=== PATIENT | female | born 1970 | race Caucasian/White ===

== ENCOUNTER 2021-05-14 07:10 | Inpatient (IN) ==
[2021-05-14] MEDS ORDERED: methylPREDNISolone 125 MG/2 ML VIAL IV STA (07:21)
[2021-05-14] MEDS ORDERED: ALBUT/IPRATROP 3MG/0.5MG NEB 3 ML VIAL NEB STA (07:21)
--- NOTE | 2021-05-14 08:19 | XRay Report ---
XR chest 1V portable CLINICAL HISTORY: dyspnea TECHNIQUE: Single frontal radiograph of the chest was obtained. Comparison: Comparison is made to chest one view 06/01/2012 FINDINGS: No lines and tubes are seen. The cardiomediastinal silhouette is normal. The lungs are clear. No evid ence of pleural effusion or pneumothorax. IMPRESSION: No acute chest disease. ACT 112: Negative or not required by law. Electronically signed by: Brendan Genao M.D. 05/14/2021 8:17 AM
[2021-05-14 09:00] LABS: Basophils # (auto) 0.02 K/uL (0-0.2); Basophils % (auto) 0.2 %; Hemoglobin 16.6 g/dL (12.0-16.0); Immature Granulocytes # (auto) 0.02 K/uL (0.00-0.02); Immature Granulocytes % (auto) 0.2 %; Lymphocytes % (auto) 12.2 %; Mean Corpuscular Hemoglobin 30.7 pg (25-34); Mean Corpuscular Hgb Conc 30.2 g/dL (32-36); Mean Corpuscular Volume 101.9 fL (80-100); Mean Platelet Volume 10.5 fL (7.4-10.4); Monocytes # (auto) 0.54 K/uL (0.11-0.59); Monocytes % (auto) 5.5 %; Neutrophils # (auto) 7.93 K/uL (1.4-6.5); Neutrophils % (auto) 80.9 %; Platelet Count 306 K/uL (130-400); RDW Coefficient of Variation 15.3 % (11.5-14.5); RDW Standard Deviation 56.2 fL (36.4-46.3); White Blood Count 9.81 K/uL (4.8-10.8)
[2021-05-14 09:29] LABS: Alanine Aminotransferase 14 U/L (12-78); Albumin Level 3.1 gm/dl (3.4-5.0); Aspartate Aminotransferase 10 U/L (15-37); BUN Creatinine Ratio 14.3 (10-20); Blood Urea Nitrogen 11 mg/dl (7-18); Calcium 8.9 mg/dl (8.5-10.1); Carbon Dioxide 32 mmol/L (21-32); Chloride 98 mmol/L (98-107); Est GFR (Non-African American) 93.1 ml/min; Glucose 112 mg/dl (70-99); Sodium 139 mmol/L (136-145)
[2021-05-14 09:32] LABS: Albumin Globulin Ratio 0.7 (0.9-2); Alkaline Phosphatase 91 U/L (45-117); Bilirubin,Total 0.5 mg/dl (0.2-1); Globulin 4.2 gm/dl (2.5-4.0); Total Protein 7.3 gm/dl (6.4-8.2); Troponin I < 0.015 ng/ml (0-0.045)
[2021-05-14] MEDS ORDERED: SODIUM CHLORIDE 0.9% 500 ML IV ONE (09:42)
[2021-05-14] MEDS ORDERED: SODIUM CHLORIDE 0.9% 1000ML 1,000 ML IV SCH (09:45)
[2021-05-14] MEDS: MAGNESIUM SULFATE / D5W 1 GM/100 ML BAG IV SCH ×2 (10:06→10:22)
--- NOTE | 2021-05-14 10:15 | History & Physical Report ---
Date of Service May 14, 2021 Assessment & Plan (1) Hypoxia: (2) SOB (shortness of breath): Plan: Likely COPD or asthma exacerbation in patient with tobacco use and undiagnosed lung disease Patient is 51-year-old female with PMH depression, anxiety, bipolar disorder, pseudoseizures, tobacco use presented to ER with complaint of SOB, wheezing x several weeks. No fever/chills, or CP. Using OTC Primatine Mist Inhaler and now able to have nonproductive cough. In ER patient afebrile, initial P 100, BP 130/91, 65% on room air placed on nonrebreather at 15 L with sats of 100% then transition to oxygen mask 6 L with sats remaining at 100% and was given an hour-long neb treatment. Posttreatment is 91% on 4 L oxygen mask. No leukocytosis, negative troponin, negative COVID-19 PCR. Chest x-ray: No infiltrate, no pneumothorax In ER received hour-long albuterol nebulizer treatment, Solu-Medrol 125 mg, 2 g magnesium sulfate, 500 mL NSS bolus After nebulizer treatment patient has been able to being titrated down to 4 L oxygen mask with sats 91-93% and patient much more comfortable Admit PCU ABG pending Supplemental oxygen with goal 90% O2 sat as suspect underlying COPD Scheduled DuoNebs Solu-Medrol 40 mg every 8 H Zithromax IVF May need to consider pulmonology consult if no improvement CBC, BMP in a.m. (3) Anxiety and depression: Plan: History anxiety, depression, bipolar disorder No current medications. Has not had follow-up for years (4) History of pseudoseizure: Plan: Previously on medications. Has not had follow-up for years Monitor (5) Tobacco use: Plan: History 1 pack/day smoker x40 years. Past month has reportedly stopped smoking Encourage patient to continue to avoid tobacco DVT Prophylaxis -Lovenox SQ Full Code as per discussion with pt Does not have PCP for routine care Pt was seen and care coordinated with Dr Iverson. See addendum History of Present Illness Chief Complaint: SOB Primary Care Provider: NO PCP Patient is 51-year-old female with PMH depression, anxiety, bipolar disorder, pseudoseizures, tobacco use presented to ER with complaint of shortness of breath times several weeks. Patient reports been having shortness of breath and wheezing for several weeks however this morning woke up with severe shortness of breath. Tried using OTC Primatine Mist Inhaler. States she feels like was able to cough after using that a couple of times. Feels like she is not moving much air. In past was to be on daily inhaler and nasal spray, however did not take regularly. Has not seen PCP for 7 years. Reports a smoker 0.5-1 ppd x 40 years. In the past month has cut down and not smoking past month. Denies fever/chills, diaphoresis, N/V/D/C, REAL, dizziness, syncope, vision changes, neck pain, CP, orthopnea, palpitations, sore throat, choking, otalgia, rhinorrhea, abdominal pain, paresthesias, extremity weakness, extremity edema, rashes, urinary symptom s. Denies ill contacts. Reports stays at home mostly. Did not have COVID-19 vaccine. Cell phone number: [phone], home phone in chart also. In ER patient afebrile, initial P 100, BP 130/91, 65% on room air placed on nonrebreather at 15 L with sats of 100% then transition to oxygen mask 6 L with sats remaining at 100% and was given an hour-long neb treatment. Posttreatment is 91% on 4 L oxygen mask. No leukocytosis, negative troponin, negative COVID- 19 PCR. Chest x-ray without infiltrate, pneumothorax. Allergies Allergy/AdvReac Type Severity Reaction Status Date / Time Penicillins Allergy Severe RASH, Verified 07/29/09 03:36 HIVES, AND CHEST TIGHTNESS Home Medications Medication Instructions Recorded Confirmed Type No Known Home Medications 05/14/21 05/14/21 History Past Med/Surg History Medical History Anxiety and depression History of pseudoseizure Tobacco use Surgical History (Updated 05/14/21 @ 10:16 by Sanaz Pollard PA-C) History of History of hysterectomy Hx of tubal ligation Family History (Updated 05/14/21 @ 10:16 by Sanaz Pollard PA-C) Mother Breast cancer Social History (Updated 05/14/21 @ 10:29 by Sanaz Pollard PA-C) Smoking Status: Current every day smoker Tobacco Type: Cigarettes Hx Alcohol Use: No Hx Substance Use: No Current Living Situation: Spouse Feels Safe at Home: Yes Review of Systems Review of Systems: All systems reviewed & are unremarkable except as noted in HPI & below Physical Exam Physical Exam: General: mild distress currently with coughing with deep breathing, improves with rest. 93% on 4L oxymask, Thin female, appears older than stated age. dishevelved. Head: normocephalic, atraumatic Eyes: EOM's grossly intact, conjunctiva non-injected, anicteric ENT: normal inspection external ears, nose, mucous membranes dry Neck: supple, trachea midline Lungs: +Very diminished breath sounds throughout, +cough episode with deep breathing. Currently 93% on 4L oxymask. no wheezing/rhonchi/rales appreciated CV: tachycardia at 132, regular rhythm, no murmur, no pretibial edema Abd: normal BS, soft, non-tender Ext: no cyanosis, no calf tenderness Neuro: A&O x 3, no focal deficits noted, normal affect Skin: warm, dry Results & Data Results & Data ([facility]) Vital Signs (Past 12 Hours) Vital Signs Temp Pulse Pulse Resp BP BP Pulse Ox 05/14/21 09:00 141 H 21 127/80 98 05/14/21 08:30 124 H 20 129/82 99 05/14/21 08:12 124 H 26 H 139/84 100 05/14/21 07:49 116 H 28 H 100 05/14/21 07:37 118 H 20 100 05/14/21 07:14 37.1 C 100 H 18 130/91 65 L 05/14/21 07:11 65 L Supervising Physician Co-Signing Physician Notes Pt is a 51 y/o F with hx of Migraine, Depression, Pseudoseizure (hands tremor), asthma/COPD admitted for SOB with Hypoxia. Pt also complained of vaginal discharge for 2 weeks Exam: In mild Respiratory distress, on 4L oxymask Cardiac: normal S1/S2, no murmur Lungs: b/l decreased BS (significant), no wheezing Abd: ND, NT, Soft MSK: no LE edema Psych: AAOx3 A/P: SOB with Hypoxia: -2/2 COPD exacerbation (due to lack of medical treatment) -COVID neg and CXR showed no sign of pneumonia -pt responded well to steroid and nebs -for now will continue the pt on supplemental oxygen ----ABG pending: if CO2 significantly abnormal then will consider BiPAP -will do solumedrol and nebs q4hrs and zpak -case management consult: to help pt with insurance - PCU admission for now Vaginal discharge: -2/2 likely Samantha Vaginitis -has been sexually active for 1 year and only one partner -will do diflucan if no improvement then flagyl for possible BV Agree with A/P by Sanaz Pollard PA-C
[2021-05-14 11:21] LABS: Base Excess ABG 4.9 mEq/L (-9-1.8); HCO3 ABG 36 mmol/L (19-24); Oxygen Saturation ABG 95.3 % (90-95); PCO2 ABG 84 mmHg (35-46); PO2 ABG 86 mmHg (80-95); pH ABG 7.25 (7.35-7.45)
[2021-05-14 11:33] LABS: Allen Test Pos (Pos)
--- NOTE | 2021-05-14 11:58 | Communication Note ---
Date of Service: May 14, 2021 Pt's ABG showed PH of 7.25, CO2 of 84 --- will put pt on BiPAP and repeat ABG in 1 hour --- if repeat ABG showed CO2<60 then will transition the pt to oxymask
[2021-05-14] MEDS ORDERED: ACETAMINOPHEN 325 MG TAB PO PRN (14:04)
[2021-05-14] MEDS ORDERED: ONDANSETRON INJ 2 MG/ML 2 ML VIAL IV PRN (14:04)
[2021-05-14] MEDS ORDERED: POLYETHYLENE (MIRALAX) 17 GM PACK PO PRN (14:04)
[2021-05-14] MEDS ORDERED: AZITHROMYCIN 250 MG TAB PO ONE (14:14)
[2021-05-14] MEDS ORDERED: FLUCONAZOLE 50 MG TAB PO ONE (14:15)
--- NOTE | 2021-05-14 14:19 | Emergency Department Note ---
Impression & Plan Asthma with status asthmaticus, Hypoxia, SOB (shortness of breath) ED Provider Note CHIEF COMPLAINT: SOB HISTORY OF PRESENT ILLNESS: This 51-year-old female patient presents to the emergency department who presents emergency department with complaints of shortness of breath and asthma exacerbation. Patient states she has a long history of asthma and smoking, stopped smoking within the last month. She has had 2 cigarettes this month she says. Patient has had some increased work of breathing and is unable to lie flat. She has been using an [id number] inhaler but states it made her cough. She denies any fevers, chills, chest pain, vomiting or diarrhea. Patient is not Covid vaccinated. She states she lives at home with her and does not really leave. She also states she has not seen a physician in many years. REVIEW OF SYSTEMS: A review of systems was performed with positives and pertinent negatives listed in the history of present illness. 10 systems were reviewed and are otherwise negative. ALLERGIES: see below MEDICATIONS: see below PMH: see below SOCIAL HISTORY: see below DDx: Reactive airway disease, pneumonia, pneumothorax, COPD, CHF, infections, cardiac ischemia, pulmonary embolism, musculoskeletal, gastrointestinal, as well as other pathologies. PHYSICAL EXAM: Vital signs reviewed. Hypoxic to 65% on room air at triage General: Chronically ill-appearing 51-year-old female, in some respiratory distress, on nonrebreather HEENT: No scleral icterus, PERRLA, neck supple. Atraumatic. Cardiovascular: Tachycardic but regular with occasional ectopy. Pulmonary: Diminished breath sounds bilaterally to auscultation, increased work of breathing. Tripoding, minimal air movement. Abdomen: Soft, nontender, nondistended, positive bowel sounds. Musculoskeletal: Atraumatic, no peripheral edema. Neurologic: Patient awake alert and oriented x 3, speech is clear Skin: Warm, dry, no rash EMERGENCY DEPARTMENT COURSE/MDM: This patient was evaluated and appeared to be in no significant distress. IV access was obtained and laboratory work was draw n. Patient was placed on a quality assurance monitor noted to be in a sinus tachycardia. Patient's chest x-ray reveals no evidence of focal lung consolidation or failure. Covid swab was obtained and is negative. Was difficult to obtain IV access on the patient therefore she was given 125 mg of IM Solu-Medrol and an hour-long DuoNeb treatment. After IV access was established, the patient was given 2 g of IV magnesium for persistent tightness, asthma. She did have some improvement. IV fluids were administered. Patient's case was discussed with the hospitalist service who will evaluate the patient for admission and further management. MONITORING: An order for cardiac monitoring was placed and the patient is noted to be in a sinus tachycardia at 118 beats per minute. RADIOLOGY: See below EKG: Sinus tachycardia 117 bpm. Right atrial enlargement, rightward axis. Pulmonary disease pattern with previous septal infarct. Nonspecific ST changes. QTc is 446. No PVC, no PAC. Normal QT interval. DISPOSITION: Admission I have personally spent 35 minutes of critical care time in the direct management of this patient. This was a life/limb threatening event. This 35 minutes is in excess of all separately billable procedures. Past Med/Surg History Medical History Anxiety and depression History of pseudoseizure Tobacco use Surgical History History of History of hysterectomy Hx of tubal ligation Family History Mother Breast cancer Social History Smoking Status: Former smoker Tobacco Type: Cigarettes Cigarettes Per Day: 2; Hx Alcohol Use: No Hx Substance Use: No Preferred Language: Kenyan Communication Ability: Effective Officer Lieutenant Required: No Beliefs That Will Affect Care: None Current Living Situation: Spouse Other Information That Helps Us Care for You: No Feels Safe at Home: Yes Safety Concerns: Feels Safe At This Time Assistive Devices: Cane and Glasses Allergies Allergies Allergy/AdvReac Type Severity Reaction Status Date / Time Penicillins Allergy Severe RASH, Verified 07/29/09 03:36 HIVES, AND CHEST TIGHTNESS Home Meds Home Medications Medication Instructions Recorded Confirmed No Known Home Medications 05/14/21 05/14/21 Results & Data (ED) Vital Signs Vital Signs - 24 hr 05/14/21 07:11 05/14/21 07:14 05/14/21 07:25 Temperature 37.1 C Temperature Source Temporal Artery Scan Pulse Rate 100 H Pulse Rate [Right Finger] Pulse Rate from SpO2 Sensor Pulse Rhythm Pulse Rhythm [Right Finger] Pulse Strength [Right Finger] Respiratory Rate 18 Respiratory Effort / Characteristics Non-Labored Labored Respiratory Depth Normal Shallow Respiratory Pattern Tachypnea Blood Pressure 130/91 Blood Pressure [Right Arm] Blood Pressure Mean 104 Blood Pressure Mean [Right Arm] Blood Pressure Position [Right Arm] Pulse Oximetry 65 L 65 L Oxygen Delivery Method Non-rebreather Room Air Oxygen Flow Rate 0 Sepsis Recent Fever Within 48 Hours No Sepsis New/Unexplained Change in Mental Status No Sepsis Action Taken by Nursing No Action Required Oxygen Flow Rate - Titration 15 Pulse Oximetry Post Tiitration 100 05/14/21 07:35 05/14/21 07:37 05/14/21 07:46 Temperature Temperature Source Pulse Rate Pulse Rate [Right Finger] 118 H Pulse Rate from SpO2 Sensor Pulse Rhythm Pulse Rhythm [Right Finger] Pulse Strength [Right Finger] Respiratory Rate 20 Respiratory Effort / Characteristics Non-Labored Spontaneous Respiratory Depth Respiratory Pattern Blood Pressure Blood Pressure [Right Arm] Blood Pressure Mean Blood Pressure Mean [Right Arm] Blood Pressure Position [Right Arm] Pulse Oximetry 100 Oxygen Delivery Method Oxymask Oxymask Oxymask Oxygen Flow Rate 4 Sepsis Recent Fever Within 48 Hours Sepsis New/Unexplained Change in Mental Status Sepsis Action Taken by Nursing Oxygen Flow Rate - Titration 6 4 Pulse Oximetry Post Tiitration 100 100 05/14/21 07:49 05/14/21 08:12 05/14/21 08:30 Temperature Temperature Source Pulse Rate 116 H 124 H Pulse Rate [Right Finger] 124 H Pulse Rate from SpO2 Sensor 124 H Pulse Rhythm Regular Pulse Rhythm [Right Finger] Regular Pulse Strength [Right Finger] Normal Respiratory Rate 28 H 26 H 20 Respiratory Effort / Characteristics Non-Labored Spontaneous Respiratory Depth Normal Respiratory Pattern Regular Blood Pressure 129/82 Blood Pressure [Right Arm] 139/84 Blood Pressure Mean 97 Blood Pressure Mean [Right Arm] 102 Blood Pressure Position [Right Arm] Sitting Pulse Oximetry 100 100 99 Oxygen Delivery Method Nebulizer Nebulizer Oxygen Flow Rate Sepsis Recent Fever Within 48 Hours Sepsis New/Unexplained Change in Mental Status Sepsis Action Taken by Nursing Oxygen Flow Rate - Titration Pulse Oximetry Post Tiitration 05/14/21 09:00 05/14/21 09:30 05/14/21 10:00 Temperature Temperature Source Pulse Rate 141 H 135 H 135 H Pulse Rate [Right Finger] Pulse Rate from SpO2 Sensor 141 H 137 H 136 H Pulse Rhythm Pulse Rhythm [Right Finger] Pulse Strength [Right Finger] Respiratory Rate 21 17 17 Respiratory Effort / Characteristics Respiratory Depth Respiratory Pattern Blood Pressure 127/80 115/72 109/72 Blood Pressure [Right Arm] Blood Pressure Mean 95 86 84 Blood Pressure Mean [Right Arm] Blood Pressure Position [Right Arm] Pulse Oximetry 98 91 92 Oxygen Delivery Method Oxygen Flow Rate Sepsis Recent Fever Within 48 Hours Sepsis New/Unexplained Change in Mental Status Sepsis Action Taken by Nursing Oxygen Flow Rate - Titration Pulse Oximetry Post Tiitration Home Medications Current Medication List: was personally reviewed by me Laboratory Data Attestation: I reviewed the patient's lab results. Result diagrams: 05/14/21 08:51 05/14/21 08:51 Lab Results 05/14/21 05/14/21 05/14/21 Range/Units 08:00 08:00 08:00 WBC Cancelled RBC Cancelled Hgb Cancelled Hct Cancelled MCV Cancelled MCH Cancelled MCHC Cancelled RDW Std Deviation Cancelled RDW Coeff of Len Cancelled Plt Count Cancelled MPV Cancelled Immature Gran % (Auto) Cancelled Neut % (Auto) Cancelled Lymph % (Auto) Cancelled [place] % (Auto) Cancelled Eos % (Auto) Cancelled Baso % (Auto) Cancelled Neut # (Auto) Cancelled Lymph # (Auto) Cancelled [place] # (Auto) Cancelled Eos # (Auto) Cancelled Baso # (Auto) Cancelled Immature Gran # (Auto) Cancelled Absolute Nucleated RBC Cancelled Nucleated RBC % (auto) Cancelled Neutrophils % (Manual) Cancelled Band Neutrophils % Cancelled Lymphocytes % (Manual) Cancelled Prolymphocyte % Cancelled Reactive Lymphs % (Man) Cancelled Monocytes % (Manual) Cancelled Eosinophils % (Manual) Cancelled Basophils % (Manual) Cancelled Metamyelocytes % (Man) Cancelled Myelocytes % (Man) Cancelled Promyelocytes % (Man) Cancelled Blast Cells % (Manual) Cancelled Plasma Cell % (Manual) Cancelled Other Cells % Cancelled Nucleated RBC % Cancelled Neutrophils # (Manual) Cancelled Band Neutrophils # Cancelled Total Absolute Neuts Cancelled Lymphocytes # (Manual) Cancelled Prolymphocyte # Cancelled Reactive Lymphs # Cancelled Total Abs Lymphocytes Cancelled Monocytes # (Manual) Cancelled Eosinophils # (Manual) Cancelled Basophils # (Manual) Cancelled Metamyelocytes # (Man) Cancelled Myelocytes # (Manual) Cancelled Promyelocytes # (Man) Cancelled Blast Cells # (Man) Cancelled Plasma Cell # (Manual) Cancelled Other Cells # Cancelled Nucleated RBCs # (Man) Cancelled Hypersegmented Neuts Cancelled Hyposegmented Neuts Cancelled Hypogranular Neuts Cancelled Large Granular Lymphs Cancelled # Lrg Granular Lymphs Cancelled Hairy Cells Cancelled Smudge Cells Cancelled Toxic Granulation Cancelled Toxic Vacuolation Cancelled Dohle Bodies Cancelled Leo Rods Cancelled Platelet Estimate Cancelled Hypogranular Platelets Cancelled Clumped Platelets Cancelled Giant Platelets Cancelled Platelet Satelliting Cancelled RBC Morphology Cancelled Polychromasia Cancelled Hypochromasia Cancelled Poikilocytosis Cancelled Basophilic Stippling Cancelled Anisocytosis Cancelled Microcytosis Cancelled Macrocytosis Cancelled Spherocytes Cancelled Pappenheimer Bodies Cancelled Sickle Cells Cancelled Target Cells Cancelled Tear Drop Cells Cancelled Ovalocytes Cancelled Stomatocytes Cancelled Zuluaga-Cromberg Bodies Cancelled Echinocytes Cancelled Acanthocytes (Spur) Cancelled Rouleaux Cancelled RBC Agglutinates Cancelled Schistocytes Cancelled RBC Morph Comment Cancelled Sezary Cell Cancelled Sodium Cancelled Potassium Cancelled Chloride Cancelled Carbon Dioxide Cancelled Anion Gap Cancelled BUN Cancelled Creatinine Cancelled Est Cr Clr Drug Dosing Cancelled Est GFR ( Amer) Cancelled Est GFR (Non-Af Amer) Cancelled BUN/Creatinine Ratio Cancelled Glucose Cancelled Calcium Cancelled Magnesium (1.8-2.4) mg/dl Total Bilirubin Cancelled AST Cancelled ALT Cancelled Alkaline Phosphatase Cancelled Troponin I Cancelled Total Protein Cancelled Albumin Cancelled Globulin Cancelled Albumin/Globulin Ratio Cancelled SARS-CoV-2 (PCR) NEGATIVE (Negative) 05/14/21 05/14/21 05/14/21 Range/Units 08:51 08:51 08:51 WBC 9.81 RBC 5.40 Hgb 16.6 H Hct 55.0 H MCV 101.9 H MCH 30.7 MCHC 30.2 L RDW Std Deviation 56.2 H RDW Coeff of Len 15.3 H Plt Count 306 MPV 10.5 H Immature Gran % (Auto) 0.2 Neut % (Auto) 80.9 Lymph % (Auto) 12.2 [place] % (Auto) 5.5 Eos % (Auto) 1.0 Baso % (Auto) 0.2 Neut # (Auto) 7.93 H Lymph # (Auto) 1.20 [place] # (Auto) 0.54 Eos # (Auto) 0.10 Baso # (Auto) 0.02 Immature Gran # (Auto) 0.02 Absolute Nucleated RBC Nucleated RBC % (auto) Neutrophils % (Manual) Band Neutrophils % Lymphocytes % (Manual) Prolymphocyte % Reactive Lymphs % (Man) Monocytes % (Manual) Eosinophils % (Manual) Basophils % (Manual) Metamyelocytes % (Man) Myelocytes % (Man) Promyelocytes % (Man) Blast Cells % (Manual) Plasma Cell % (Manual) Other Cells % Nucleated RBC % Neutrophils # (Manual) Band Neutrophils # Total Absolute Neuts Lymphocytes # (Manual) Prolymphocyte # Reactive Lymphs # Total Abs Lymphocytes Monocytes # (Manual) Eosinophils # (Manual) Basophils # (Manual) Metamyelocytes # (Man) Myelocytes # (Manual) Promyelocytes # (Man) Blast Cells # (Man) Plasma Cell # (Manual) Other Cells # Nucleated RBCs # (Man) Hypersegmented Neuts Hyposegmented Neuts Hypogranular Neuts Large Granular Lymphs # Lrg Granular Lymphs Hairy Cells Smudge Cells Toxic Granulation Toxic Vacuolation Dohle Bodies Leo Rods Platelet Estimate Hypogranular Platelets Clumped Platelets Giant Platelets Platelet Satelliting RBC Morphology Polychromasia Hypochromasia Poikilocytosis Basophilic Stippling Anisocytosis Microcytosis Macrocytosis Spherocytes Pappenheimer Bodies Sickle Cells Target Cells Tear Drop Cells Ovalocytes Stomatocytes Zuluaga-Cromberg Bodies Echinocytes Acanthocytes (Spur) Rouleaux RBC Agglutinates Schistocytes RBC Morph Comment Sezary Cell Sodium 139 Potassium 4.0 Chloride 98 Carbon Dioxide 32 Anion Gap 9.0 BUN 11 Creatinine 0.74 Est Cr Clr Drug Dosing Not Reportable Est GFR ( Amer) 108.0 Est GFR (Non-Af Amer) 93.1 BUN/Creatinine Ratio 14.3 Glucose 112 H Calcium 8.9 Magnesium 2.6 H (1.8-2.4) mg/dl Total Bilirubin 0.5 AST 10 L ALT 14 Alkaline Phosphatase 91 Troponin I < 0.015 Total Protein 7.3 Albumin 3.1 L Globulin 4.2 H Albumin/Globulin Ratio 0.7 L SARS-CoV-2 (PCR) (Negative) Administered Medications Methylprednisolone (Methylprednisolone 40 Mg/Ml Vial) 40 mg IV Q8H MOHAN Stop: 12/21/21 10:44 Last Admin: 05/14/21 11:16 Dose: 40 mg Documented by: [id number] Discontinued Medications Albuterol (Albut/Ipratrop 3mg/0.5mg Neb 3 Ml Vial) 12 ml NEB ONE STA Stop: 05/14/21 07:22 Last Admin: 05/14/21 07:36 Dose: 12 ml Documented by: [id number] Magnesium Sulfate/Dextrose (Magnesium Sulfate / D5w) 1 gm in 100 mls @ 600 mls/hr IV Q10M MOHAN Stop: 05/14/21 10:00 Last Infusion: 05/14/21 10:38 Dose: 0 mls/hr Documented by: [id number] Admin: 05/14/21 10:22 Dose: 600 mls/hr Documented by: [id number] Infusion: 05/14/21 10:17 Dose: 600 mls/hr Documented by: [id number] Admin: 05/14/21 10:06 Dose: 600 mls/hr Documented by: [id number] Sodium Chloride (Nss) 500 mls @ 999 mls/hr IV .Q31M ONE Stop: 05/14/21 10:12 Last Infusion: 05/14/21 10:38 Dose: 0 mls/hr Documented by: [id number] Admin: 05/14/21 10:07 Dose: 999 mls/hr Documented by: [id number] Sodium Chloride (Nss 1000ml) 1,000 mls @ 125 mls/hr IV .Q8H MOHAN Stop: 06/13/21 09:44 Last Admin: 05/14/21 10:07 Dose: 125 mls/hr Documented by: [id number] Methylprednisolone (Methylprednisolone 125 Mg/2 Ml Vial) 125 mg IV NOW STA Stop: 05/14/21 07:22 Last Admin: 05/14/21 07:54 Dose: Not Given Documented by: [id number] Methylprednisolone (Methylprednisolone 40 Mg/Ml Vial) 125 mg IM NOW STA Stop: 05/14/21 07:37 Last Admin: 05/14/21 07:45 Dose: 125 mg Documented by: [id number] Imaging Data Radiologist's Impression: Chest X-Ray 05/14/21 07:21 XR chest 1V portable CLINICAL HISTORY: dyspnea TECHNIQUE: Single frontal radiograph of the chest was obtained. Comparison: Comparison is made to chest one view 06/01/2012 FINDINGS: No lines and tubes are seen. The cardiomediastinal silhouette is normal. The lungs are clear. No evidence of pleural effusion or pneumothorax. IMPRESSION: No acute chest disease. ACT 112: Negative or not required by law. Electronically signed by: Brendan Genao M.D. 05/14/2021 8:17 AM Blood Pressure Blood Pressure Findings: Normal blood pressure Blood Pressure Disposition: did not require urgent referral Discharge Plan Visit Data Chief Complaint: Asthma Stated Complaint: ASTHMA,SOB ED Provider: Lana Dias Discharge Problem: Asthma with status asthmaticus, Hypoxia, SOB (shortness of breath) Discharge Instructions Interventions: ED Discharge Assessment Last Done: 05/14/21 13:30 Discharge Problem: Asthma with status asthmaticus Qualifiers: Asthma severity: severe Asthma persistence: persistent Qualified Code(s): J45.52 - Severe persistent asthma with status asthmaticus
[2021-05-14] MEDS: PATIENT'S HEIGHT AND/OR WEIGHT NEEDED SCH ×2 (14:43→15:23)
[2021-05-14] MEDS: SODIUM CHLORIDE 0.9% 1000ML 1,000 ML IV SCH (14:43)
[2021-05-14] MEDS: ALBUT/IPRATROP 3MG/0.5MG NEB 3 ML VIAL NEB SCH ×2 (15:15→19:57)
[2021-05-14] MEDS: ENOXAPARIN INJ 40 MG/0.4 ML SYR SQ SCH (16:03)
[2021-05-14 16:53] LABS: Base Excess ABG 5.5 mEq/L (-9-1.8); HCO3 ABG 35 mmol/L (19-24); Oxygen Saturation ABG 96.2 % (90-95); PCO2 ABG 74 mmHg (35-46); PO2 ABG 91 mmHg (80-95); pH ABG 7.29 (7.35-7.45)
[2021-05-14 16:55] LABS: Allen Test POS (Pos)
[2021-05-14] MEDS: methylPREDNISolone 40 MG in SYRINGE 0 ML IV SCH (20:52)
[2021-05-15] MEDS: SODIUM CHLORIDE 0.9% 1000ML 1,000 ML IV SCH (04:07)
[2021-05-15] MEDS: methylPREDNISolone 40 MG in SYRINGE 0 ML IV SCH ×2 (04:08→20:00)
[2021-05-15] MEDS: ALBUT/IPRATROP 3MG/0.5MG NEB 3 ML VIAL NEB SCH ×4 (07:09→19:33)
[2021-05-15 07:49] LABS: Hematocrit (blood only) 48.6 % (37-47); Hemoglobin 14.2 g/dL (12.0-16.0); Mean Corpuscular Hemoglobin 30.3 pg (25-34); Mean Corpuscular Hgb Conc 29.2 g/dL (32-36); Mean Corpuscular Volume 103.6 fL (80-100); Mean Platelet Volume 10.6 fL (7.4-10.4); Platelet Count 259 K/uL (130-400); RDW Coefficient of Variation 15.2 % (11.5-14.5); RDW Standard Deviation 57.8 fL (36.4-46.3); Red Blood Count 4.69 M/uL (4.2-5.4); White Blood Count 10.23 K/uL (4.8-10.8)
[2021-05-15 07:52] LABS: BUN Creatinine Ratio 18.2 (10-20); Calcium 8.8 mg/dl (8.5-10.1); Creatinine Clr Calc Pharmacy 133.3 ml/min; Est GFR (African American) 130.7 ml/min; Est GFR (Non-African American) 112.8 ml/min; Potassium 4.7 mmol/L (3.5-5.1)
[2021-05-15] MEDS: ENOXAPARIN INJ 40 MG/0.4 ML SYR SQ SCH (08:08)
[2021-05-15] MEDS: AZITHROMYCIN 250 MG TAB PO SCH (08:08)
[2021-05-15] MEDS ORDERED: methylPREDNISolone 40 MG in SYRINGE 0 ML IV SCH (11:00)
--- NOTE | 2021-05-15 14:55 | Hospitalist Progress Note ---
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 No fever/chills, or CP. She is being managed for the following #. Acute hypoxic respiratory failure - not on home O2 #. Likely Asthma #. Less likely COPD #. Can be component of both In ER patient afebrile, initial P 100, BP 130/91, 65% on room air placed on nonrebreather at 15 L with sats of 100% then transition to oxygen mask 6 L with sats remaining at 100% and was given an hour-long neb treatment. Posttreatment is 91% on 4 L oxygen mask. No leukocytosis, negative troponin, negative COVID-19 PCR. Chest x-ray: No infiltrate, no pneumothorax Likely COPD or asthma exacerbation in patient with tobacco use (quit 2 month ago, smoked since teenage) and undiagnosed lung disease Patient reporting improvement in her breathing, currently on 3 L nasal cannula oxygen. Required BiPAP earlier in the admission. Continue with Solu-Medrol 3 times daily, [id number] nebulizer, Mucomyst Continue telemetry, supplemental oxygentitrate as appropriate Continue Zithromax Consider pulmonary consult if no improvement Follow labs and clinically daily. #. Anxiety and depression: History anxiety, depression, bipolar disorder No current medications. Has not had follow-up for years #. History of pseudoseizure: Previously on medications. Has not had follow-up for years Monitor #. Tobacco use: History 1 pack/day smoker x40 years. Past month has reportedly stopped smoking Encourage patient to continue to avoid tobacco DVT Prophylaxis -Lovenox SQ Full Code as per discussion with pt Does not have PCP for routine care. Patient will have to establish PCP upon discharge, pulmonology and pulmonary function test as an outpatient. Expect discharge in 1 to 2 days, likely to home. Admission and Anticipated Discharge Date Admission Date: May 14, 2021 Subjective Patient was sitting up in bed, on 3 L nasal cannula oxygen, NAD, no new acute events overnight. Patient reports continuing dry cough with minimal improvement, expect to improve in a day or so. Patient is eating and moving bowels okay. Patient denies any headache/chest pain/palpitations/increased shortness of breath [in fact she reports improvement in her breathing markedly from yesterday]/belly pain/other review of symptoms. Physical Exam Physical Exam: GENERAL: Alert and oriented x3. NAD, on 3L crossing HEENT: No pallor, no icterus. Pupils equal, round and reactive to light. Oral mucosa moist. NECK: No JVD, no neck masses. HEART: S1 and S2 heard. Regular rate and rhythm. No murmur, no gallop. RESPIRATORY SYSTEM: Normal AP diameter. No accessory muscle use. No wheezing, no crackles. Decreased airflow through b/l lungs. ABDOMEN: Soft, bowel sounds present, nontender, no distention. CENTRAL NERVOUS SYSTEM: Alert and oriented x3. No facial droop. Speech is clear. Obeys simple commands. Moves extremities. EXTREMITIES: No edema, no erythema seen. Results & Data Results & Data ([facility]) Vital Signs (Past 12 Hours) Vital Signs Temp Pulse Pulse Resp BP Pulse Ox 05/15/21 11:46 36.5 C 95 H 18 96/62 L 87 L 05/15/21 10:33 94 H 18 95 05/15/21 07:32 36.5 C 94 H 18 96/63 L 92 05/15/21 07:27 82 05/15/21 07:10 95 H 18 94 05/15/21 04:27 36.8 C 92 H 16 98/65 L 94 (1) Asthma with status asthmaticus Asthma persistence: persistent Asthma severity: severe Qualified Code(s): J45.52 - Severe persistent asthma with status asthmaticus
[2021-05-15] MEDS: ACETYLCYSTEINE 600 MG CAP PO SCH (20:00)
[2021-05-16] MEDS: methylPREDNISolone 40 MG in SYRINGE 0 ML IV SCH ×3 (03:44→21:46)
--- NOTE | 2021-05-16 05:29 | Electrocardiogram Report ---
Test Reason : Blood Pressure : / mmHG Vent. Rate : 117 BPM Atrial Rate : 117 BPM P-R Int : 132 ms QRS Dur : 058 ms QT Int : 320 ms P-R-T Axes : 087 091 074 degrees QTc Int : 446 ms Poor data quality, interpretation may be adversely affected Sinus tachycardia Right atrial enlargement Rightward axis Septal infarct (cited on or before 14-MAY-2021) Abnormal ECG When compared with ECG of 01-JUN-2012 21:24, Vent. rate has increased BY 40 BPM Confirmed by Arnoldo Olmos ([id number]) on 05/16/2021 5:29:15 AM Referred By: REFERRED SELF Confirmed By:Arnoldo Olmos
[2021-05-16] MEDS: ALBUT/IPRATROP 3MG/0.5MG NEB 3 ML VIAL NEB SCH ×4 (07:12→19:33)
[2021-05-16 08:16] LABS: BUN Creatinine Ratio 24.3 (10-20); Calcium 8.8 mg/dl (8.5-10.1); Creatinine Clr Calc Pharmacy 110.3 ml/min; Est GFR (African American) 122.8 ml/min; Magnesium 2.6 mg/dl (1.8-2.4); Potassium 4.9 mmol/L (3.5-5.1)
[2021-05-16] MEDS: ENOXAPARIN INJ 40 MG/0.4 ML SYR SQ SCH (08:20)
[2021-05-16] MEDS: ACETYLCYSTEINE 600 MG CAP PO SCH ×2 (08:20→20:40)
[2021-05-16] MEDS: AZITHROMYCIN 250 MG TAB PO SCH (08:21)
--- NOTE | 2021-05-16 19:22 | Hospitalist Progress Note ---
Date of Service May 16, 2021 Assessment & Plan (1) Acute respiratory failure with hypoxia: (2) Asthma with status asthmaticus: Plan: 51-year-old female with PMH depression, anxiety, bipolar disorder, pseudoseizures, tobacco use presented to ER 05/14 with complaint of SOB, wheezing x several weeks complicated with excessive non productive cough lately [employer]. No fever/chills, or CP. She is being managed for the following: #. Acute hypoxic respiratory failure - not on home O2 #. Likely Asthma #. Less likely COPD #. Can be component of both In ER patient afebrile, initial P 100, BP 130/91, 65% on room air placed on nonrebreather at 15 L with sats of 100% then transition to oxygen mask 6 L with sats remaining at 100% and was given an hour-long neb treatment. Posttreatment is 91% on 4 L oxygen mask. No leukocytosis, negative troponin, negative COVID-19 PCR. Chest x-ray: No infiltrate, no pneumothorax Likely COPD or asthma exacerbation in patient with tobacco use (quit 2 month ago, smoked since teenage) and undiagnosed lung disease Patient reporting improvement in her breathing, currently on 3 L nasal cannula oxygen. Required BiPAP earlier in the admission. Continue with Solu-Medrol 3 times daily, [id number]-iam-iexez nebulizer, Mucomyst Continue telemetry, supplemental oxygentitrate as appropriate Continue Zithromax Patient improving, will taper down the Solu-Medrol Patient will need p.o. prednisone for 10 days upon discharge---> then transition to inhalational steroid. Patient will need outpatient pulmonary evaluation and pulmonary function test. Follow labs and clinically daily. #. Anxiety and depression: History anxiety, depression, bipolar disorder No current medications. Has not had follow-up for years #. History of pseudoseizure: Previously on medications. Has not had follow-up for years Monitor #. Tobacco use: History 1 pack/day smoker x40 years. Past month has reportedly stopped smoking Encourage patient to continue to avoid tobacco DVT Prophylaxis -Lovenox SQ Full Code as per discussion with pt Does not have PCP for routine care. Patient will have to establish PCP upon discharge, pulmonology and pulmonary function test as an outpatient. Expect discharge tomorrow on p.o. prednisone and recommendation to follow-up outpatient pulmonology pending a.m. evaluation. Admission and Anticipated Discharge Date Admission Date: May 14, 2021 Subjective Patient was sitting up in bed, on 3 L nasal cannula oxygen, NAD, no new acute events overnight. Patient reports feeling better with respect to breathing. Patient reporting a new event of shortness of breath early in the morning while lying flat which resolved after propping up in few minutes. Patient is eating and moving bowels okay. Patient denies any headache/chest pain/palpitations/increased shortness of breath/belly pain/other review of symptoms. Physical Exam Physical Exam: GENERAL: Alert and oriented x3. NAD, on 3L NC HEENT: No pallor, no icterus. Pupils equal, round and reactive to light. Oral mucosa moist. NECK: No JVD, no neck masses. HEART: S1 and S2 heard. Regular rate and rhythm. No murmur, no gallop. RESPIRATORY SYSTEM: Normal AP diameter. No accessory muscle use. No wheezing, no crackles. Decreased airflow through b/l lungs-->improving. ABDOMEN: Soft, bowel sounds present, nontender, no distention. CENTRAL NERVOUS SYSTEM: Alert and oriented x3. No facial droop. Speech is clear. Obeys simple commands. Moves extremities. EXTREMITIES: No edema, no erythema seen. Results & Data Results & Data ([facility]) Vital Signs (Past 12 Hours) Vital Signs Temp Pulse Pulse Resp BP Pulse Ox 05/16/21 16:03 36.8 C 96 H 17 106/68 93 05/16/21 15:11 86 92 H 18 93 05/16/21 11:13 36.6 C 103 H 18 107/66 94 05/16/21 10:46 94 H 16 94 05/16/21 09:00 77 05/16/21 07:25 36.4 C L 81 22 102/66 91 (1) Asthma with status asthmaticus Asthma persistence: persistent Asthma severity: severe Qualified Code(s): J45.52 - Severe persistent asthma with status asthmaticus
[2021-05-16] MEDS ORDERED: COUGH DROP (SUGAR FREE) LOZ 24 LOZ/1 BOX BUCCAL PRN (20:35)
[2021-05-17 07:19] LABS: Hematocrit (blood only) 46.5 % (37-47); Hemoglobin 13.9 g/dL (12.0-16.0); Mean Corpuscular Hemoglobin 30.5 pg (25-34); Mean Corpuscular Hgb Conc 29.9 g/dL (32-36); Mean Corpuscular Volume 102.2 fL (80-100); Mean Platelet Volume 10.8 fL (7.4-10.4); Platelet Count 253 K/uL (130-400); RDW Coefficient of Variation 15.5 % (11.5-14.5); RDW Standard Deviation 57.4 fL (36.4-46.3); Red Blood Count 4.55 M/uL (4.2-5.4); White Blood Count 16.11 K/uL (4.8-10.8)
[2021-05-17] MEDS: ALBUT/IPRATROP 3MG/0.5MG NEB 3 ML VIAL NEB SCH ×2 (07:25→11:20)
[2021-05-17 07:52] LABS: BUN Creatinine Ratio 25.1 (10-20); Creatinine Clr Calc Pharmacy 112.3 ml/min; Est GFR (African American) 123.5 ml/min; Est GFR (Non-African American) 106.6 ml/min; Magnesium 2.5 mg/dl (1.8-2.4); Phosphorus 3.2 mg/dl (2.5-4.9)
[2021-05-17] MEDS: AZITHROMYCIN 250 MG TAB PO SCH (08:10)
[2021-05-17] MEDS: ENOXAPARIN INJ 40 MG/0.4 ML SYR SQ SCH (08:11)
[2021-05-17] MEDS: ACETYLCYSTEINE 600 MG CAP PO SCH (08:11)
[2021-05-17] MEDS: methylPREDNISolone 40 MG in SYRINGE 0 ML IV SCH (10:32)
--- NOTE | 2021-05-17 12:37 | Hospitalist Progress Note ---
Date of Service May 17, 2021 Assessment & Plan (1) Acute respiratory failure with hypoxia: (2) Asthma with status asthmaticus: Plan: 51 yo F w/ hx of depression, anxiety, bipolar disorder, pseudoseizures, tobacco use presented to ER 05/14 with complaint of SOB, wheezing x several weeks complicated with excessive non productive cough lately [employer]. She is being managed for the following: Acute hypoxic respiratory failure - not on home O2 Likely 2/2 asthma vs. COPD exacerbation (no official diagnosis) Lifelong tobacco user (quit 2 months ago) Can be component of both In ER patient afebrile, initial P 100, BP 130/91, 65% on room air placed on nonrebreather at 15 L with sats of 100% then transition to oxygen mask 6 L with sats remaining at 100% and was given an hour-long neb treatment. Posttreatment is 91% on 4 L oxygen mask. No leukocytosis, negative troponin, negative COVID-19 PCR. Chest x-ray: No infiltrate, no pneumothorax Likely COPD or asthma exacerbation in patient with tobacco use (quit 2 month ago, smoked since teenage) and undiagnosed lung disease Patient reporting improvement in her breathing, currently on 3 L nasal cannula oxygen. Required BiPAP earlier in the admission. Continued with Solu-Medrol 3 times daily, [id number]-pkw-lglow nebulizer, Mucomyst Patient now becomes more tachycardic, and breathing is improved. Nebulizer only as needed change limited to prednisone Change Solu-Medrol to p.o. prednisone Continue telemetry, supplemental oxygentitrate as appropriate Continue Zithromax Patient will need p.o. prednisone for 10 days upon discharge---> then transition to inhalational steroid. Patient will need outpatient pulmonary evaluation and pulmonary function test. Follow labs and clinically daily. Anxiety and depression: History anxiety, depression, bipolar disorder No current medications. Has not had follow-up for years History of pseudoseizure: Previously on medications. Has not had follow-up for years Monitor Tobacco use: History 1 pack/day smoker x40 years. Past month has reportedly stopped smoking Encourage patient to continue to avoid tobacco DVT Prophylaxis -Lovenox SQ Full Code as per discussion with pt Does not have PCP for routine care. Patient will have to establish PCP upon discharge, pulmonology and pulmonary function test as an outpatient. Expect discharge tomorrow on p.o. prednisone and recommendation to follow-up outpatient pulmonology Admission and Anticipated Discharge Date Admission Date: May 14, 2021 Subjective Patient seen in follow-up of acute hypoxic respiratory failure Patient sitting up in bed, on 3 L NC oxygen She was complaining of chest discomfort, EKG was obtained, showing sinus tachycardia Currently she seems to be in no acute distress, she is answering questions appropriately Says her breathing is actually better Patient denies any headache/chest pain/palpitations/increased shortness of breath/abd. pain Change nebs to levalbuterol, and only as as needed Review of Systems Review of Systems: All systems reviewed & are unremarkable except as noted in Subjective Physical Exam Physical Exam: GENERAL: Alert and oriented x3, thin F in NAD, on 3L O 2 HEENT: NC/AT. E EDUARDO, PERRL. Oral m ucosa moist. NECK: No JVD, no neck masses. HEART: S1 and S2 heard. mi ld tachycardia. No murmur, no gallop . RESPIRATORY: No rmal AP diameter. No accessory musc le use. No wheezi ng, no crackles. A BDOMEN: Soft, bow el sounds present, nontender, no dis tention. NEURO: A lert and oriented x3. No facial zaire op.Moves extremit ies. EXTREMITIES: No LE edema noted. pt moves extremit ies spontaneously. Results & Data Results & Data ([facility]) Vital Signs (Past 12 Hours) Vital Signs Temp Pulse Pulse Resp BP Pulse Ox 05/17/21 11:38 36.7 C 96 H 18 104/67 95 05/17/21 11:22 98 H 18 94 05/17/21 07:51 36.6 C 97 H 16 112/72 90 05/17/21 07:25 73 19 97 05/17/21 07:00 72 88 L 05/17/21 04:07 36.4 C L 78 16 119/75 97 Laboratory Results 05/17/21 05/17/21 Range/Units 06:05 06:05 WBC 16.11 H (4.8-10.8) K/uL RBC 4.55 (4.2-5.4) M/uL Hgb 13.9 (12.0-16.0) g/dL Hct 46.5 (37-47) % MCV 102.2 H (80-100) fL MCH 30.5 (25-34) pg MCHC 29.9 L (32-36) g/dL RDW Std Deviation 57.4 H (36.4-46.3) fL RDW Coeff of Len 15.5 H (11.5-14.5) % Plt Count 253 (130-400) K/uL MPV 10.8 H (7.4-10.4) fL Sodium 138 (136-145) mmol/L Potassium 5.0 (3.5-5.1) mmol/L Chloride 101 (98-107) mmol/L Carbon Dioxide 37 H (21-32) mmol/L Anion Gap 0 L (3-11) BUN 14 (7-18) mg/dl Creatinine 0.57 L (0.6-1.2) mg/dl Est Cr Clr Drug Dosing 112.3 ml/min Est GFR ( Amer) 123.5 ml/min Est GFR (Non-Af Amer) 106.6 ml/min BUN/Creatinine Ratio 25.1 H (10-20) Glucose 108 H (70-99) mg/dl Calcium 9.0 (8.5-10.1) mg/dl Phosphorus 3.2 (2.5-4.9) mg/dl Magnesium 2.5 H (1.8-2.4) mg/dl Medications Administered Current Inpatient Medications Acetaminophen (Acetaminophen 325 Mg Tab) 650 mg PO Q4H PRN PRN Reason: Pain or Fever Stop: 06/13/21 14:03 Acetylcysteine (Acetylcysteine 600 Mg Cap) 600 mg PO BID MOHAN Stop: 06/14/21 20:59 Last Admin: 05/17/21 08:11 Dose: 600 mg Documented by: Albuterol (Albut/Ipratrop 3mg/0.5mg Neb 3 Ml Vial) 3 ml NEB QIDR MOHAN Stop: 06/13/21 14:59 Last Admin: 05/17/21 11:20 Dose: 3 ml Documented by: Azithromycin (Azithromycin 250 Mg Tab) 250 mg PO QAM MOHAN Stop: 05/18/21 08:59 Last Admin: 05/17/21 08:10 Dose: 250 mg Documented by: Enoxaparin Sodium (Enoxaparin Inj 40 Mg/0.4 Ml Syr) 40 mg SQ DAILY MOHAN Stop: 06/13/21 14:59 Last Admin: 05/17/21 08:11 Dose: 40 mg Documented by: Methylprednisolone 40 mg/ (Syringe) 0.64 mls @ 1.5 mls/min IV Q12H MOHAN Stop: 06/15/21 21:59 Last Admin: 05/17/21 10:32 Dose: 1.5 mls/min Documented by: Menthol (Cough Drop (Sugar Free) Fatoumata 24 Fatoumata/1 Box) 1 fatoumata BUCCAL Q1H PRN PRN Reason: Sore Throat Stop: 06/15/21 20:34 Ondansetron HCl (Ondansetron Inj 2 Mg/Ml 2 Ml Vial) 4 mg IV Q6H PRN PRN Reason: Nausea Stop: 06/13/21 14:03 Polyethylene Glycol (Polyethylene (Miralax) 17 Gm Pack) 17 gm PO DAILY PRN PRN Reason: Constipation Stop: 06/13/21 14:03 (1) Asthma with status asthmaticus Asthma persistence: persistent Asthma severity: severe Qualified Code(s): J45.52 - Severe persistent asthma with status asthmaticus
[2021-05-17] MEDS ORDERED: LEVALBUTEROL 1.25MG/0.5ML NEB NEB PRN (13:03)
[2021-05-17] MEDS: PANTOprazole 40 MG TAB PO SCH (13:59)
--- NOTE | 2021-05-18 07:00 | Electrocardiogram Report ---
Test Reason : Blood Pressure : / mmHG Vent. Rate : 109 BPM Atrial Rate : 109 BPM P-R Int : 136 ms QRS Dur : 066 ms QT Int : 316 ms P-R-T Axes : 083 081 062 degrees QTc Int : 425 ms Sinus tachycardia Otherwise normal ECG When compared with ECG of 14-MAY-2021 07:42, Criteria for Septal infarct are no longer Present Confirmed by Arnoldo Olmos ([id number]) on 05/18/2021 7:00:09 AM Referred By: REFERRED SELF Confirmed By:Arnoldo Olmos
[2021-05-18] MEDS: predniSONE 20 MG TAB PO SCH (07:47)
[2021-05-18] MEDS: ENOXAPARIN INJ 40 MG/0.4 ML SYR SQ SCH (07:47)
[2021-05-18] MEDS: PANTOprazole 40 MG TAB PO SCH (07:47)
[2021-05-18 09:07] LABS: BUN Creatinine Ratio 23.4 (10-20); Calcium 8.8 mg/dl (8.5-10.1); Creatinine Clr Calc Pharmacy 125.5 ml/min; Est GFR (African American) 128.1 ml/min; Est GFR (Non-African American) 110.6 ml/min; Magnesium 2.3 mg/dl (1.8-2.4); Phosphorus 3.6 mg/dl (2.5-4.9); Potassium 4.4 mmol/L (3.5-5.1)
--- NOTE | 2021-05-18 22:12 | Hospitalist Progress Note ---
Date of Service May 18, 2021 Assessment & Plan (1) Acute respiratory failure with hypoxia: (2) Asthma with status asthmaticus: Plan: 51 yo F w/ hx of depression, anxiety, bipolar disorder, pseudoseizures, tobacco use presented to ER 05/14 with complaint of SOB, wheezing x several weeks complicated with excessive non productive cough lately [employer]. She is being managed for the following: Acute hypoxic respiratory failure - not on home O2 Likely 2/2 asthma vs. COPD exacerbation (no official diagnosis) Lifelong tobacco user (quit 2 months ago) Can be component of both In ER patient afebrile, initial P 100, BP 130/91, 65% on room air placed on nonrebreather at 15 L with sats of 100% then transition to oxygen mask 6 L with sats remaining at 100% and was given an hour-long neb treatment. Posttreatment is 91% on 4 L oxygen mask. No leukocytosis, negative troponin, negative COVID-19 PCR. Chest x-ray: No infiltrate, no pneumothorax Likely COPD or asthma exacerbation in patient with tobacco use (quit 2 month ago, smoked since teenage) and undiagnosed lung disease Patient reporting improvement in her breathing, currently on 3 L nasal cannula oxygen. Required BiPAP earlier in the admission. Continued with Solu-Medrol 3 times daily, qkelvn-ylv-vccnh nebulizer, Mucomyst Patient became more tachycardic, and breathing is improved. Nebulizer only as needed and change to levalbuterol Change Solu-Medrol to p.o. prednisone Continue telemetry, supplemental oxygentitrate as appropriate Continue Zithromax Patient will need p.o. prednisone for 10 days upon discharge---> then transition to inhalational steroid. Patient will need outpatient pulmonary evaluation and pulmonary function test. Follow labs and clinically daily. Anxiety and depression: History anxiety, depression, bipolar disorder No current medications. Has not had follow-up for years History of pseudoseizure: Previously on medications. Has not had follow-up for years Monitor Tobacco use: History 1 pack/day smoker x40 years. Past month has reportedly stopped smoking Encourage patient to continue to avoid tobacco DVT Prophylaxis -Lovenox SQ Full Code as per discussion with pt Does not have PCP for routine care. Patient will have to establish PCP upon discharge, pulmonology and pulmonary function test as an outpatient. Expect discharge on p.o. prednisone and recommendation to follow-up outpatient pulmonology Admission and Anticipated Discharge Date Admission Date: May 14, 2021 Subjective Patient seen in follow-up of acute hypoxic respiratory failure Patient sitting up in bed, on 3 L NC oxygen Currently she seems to be in no acute distress, she is answering questions appropriately Says she feels out of breath with any mild exertion/ ambulation Patient denies any headache/chest pain/palpitations/abd. pain Change nebs to levalbuterol, and only as as needed (d/t tachycardia and chest discomfort yesterday) Review of Systems Review of Systems: All systems reviewed & are unremarkable except as noted in Subjective Physical Exam Physical Exam: GENERAL: Alert and oriented x3, thin F in NAD, on 3L O 2 HEENT: NC/AT. E EDUARDO, PERRL. Oral m ucosa moist. NECK: No JVD, no neck masses. HEART: S1 and S2 heard.HR in 90s, regular. N o murmur, no collier p. RESPIRATORY: N ormal AP diameter. No accessory mus minerva use. No wheez ing, no crackles. Poor air movement. ABDOMEN: Soft, b owel sounds presen t, nontender, no d istention. NEURO: Alert and oriente d x3. No facial d fox.Moves extrem ities. EXTREMITIES : No LE edema note d. pt moves extrem ities spontaneousl y. Results & Data Results & Data ([facility]) Vital Signs (Past 12 Hours) Vital Signs Temp Pulse Pulse Resp BP BP Pulse Ox 05/18/21 19:48 36.4 C L 97 H 18 112/71 95 05/18/21 15:45 88 05/18/21 15:04 36.6 C 97 H 20 110/72 96 05/18/21 11:17 36.4 C L 108 H 22 101/67 90 Laboratory Results 05/18/21 Range/Units 08:22 Sodium 141 (136-145) mmol/L Potassium 4.4 (3.5-5.1) mmol/L Chloride 102 (98-107) mmol/L Carbon Dioxide 35 H (21-32) mmol/L Anion Gap 4.0 (3-11) BUN 12 (7-18) mg/dl Creatinine 0.51 L (0.6-1.2) mg/dl Est Cr Clr Drug Dosing 125.5 ml/min Est GFR ( Amer) 128.1 ml/min Est GFR (Non-Af Amer) 110.6 ml/min BUN/Creatinine Ratio 23.4 H (10-20) Glucose 90 (70-99) mg/dl Calcium 8.8 (8.5-10.1) mg/dl Phosphorus 3.6 (2.5-4.9) mg/dl Magnesium 2.3 (1.8-2.4) mg/dl Medications Administered Current Inpatient Medications Acetaminophen (Acetaminophen 325 Mg Tab) 650 mg PO Q4H PRN PRN Reason: Pain or Fever Stop: 06/13/21 14:03 Enoxaparin Sodium (Enoxaparin Inj 40 Mg/0.4 Ml Syr) 40 mg SQ DAILY [facility] Stop: 06/13/21 14:59 Last Admin: 05/18/21 07:47 Dose: 40 mg Documented by: Levalbuterol HCl (Levalbuterol 1.25mg/0.5ml Neb) 1.25 mg NEB Q4R PRN PRN Reason: shortness of breath, wheezing Stop: 06/16/21 13:02 Menthol (Cough Drop (Sugar Free) Fatoumata 24 Fatoumata/1 Box) 1 fatoumata BUCCAL Q1H PRN PRN Reason: Sore Throat Stop: 06/15/21 20:34 Ondansetron HCl (Ondansetron Inj 2 Mg/Ml 2 Ml Vial) 4 mg IV Q6H PRN PRN Reason: Nausea Stop: 06/13/21 14:03 Pantoprazole Sodium (Pantoprazole 40 Mg Tab) [facility] [place]: 06/16/21 13:14 Last Admin: 05/18/21 07:47 Dose: 40 mg Documented by: Polyethylene Glycol (Polyethylene (Miralax) 17 Gm Pack) 17 gm PO DAILY PRN PRN Reason: Constipation Stop: 06/13/21 14:03 Prednisone (Prednisone 20 Mg Tab) 40 mg PO QAM [facility] Stop: 06/17/21 08:59 Last Admin: 05/18/21 07:47 Dose: 40 mg Documented by: (1) Asthma with status asthmaticus Asthma persistence: persistent Asthma severity: severe Qualified Code(s): J45.52 - Severe persistent asthma with status asthmaticus
[2021-05-18] MEDS ORDERED: OPTIRAY 320 125ml IV ONE (22:54)
--- NOTE | 2021-05-19 07:09 | CT Scan Report ---
CT angio chest PE protocol CT DOSE: 260.80 mGy.cm HISTORY: 51 years-old Female with PE. Acute shortness of breath TECHNIQUE: Multiple CTA images of the chest were obtained after the intravenous administration of 118 ml Optiray. Coronal and sagittal MIPS were obtained from the axial data set and were submitted for review. All measurements were obtained according to NASCET criteria. A dose lowering technique was u tilized adhering to the principles of ALARA. COMPARISON: Chest radiograph 05/14/2021 FINDINGS: CTA: There is adequate opacification of the pulmonary arteries to the level of the subsegmental branches w ithout convincing evidence of acute pulmonary embolism. Mild atherosclerosis of the thoracic aorta wi thout aneurysm or dissection. Patency of the imaged great vessels.Heart size is normal. CT CHEST: No thyroid nodule or adenopathy. Small layering pleural effusions. Moderate emphysema with bronchial wall thickening. No overt pulmonary edema or airspace consolidation typical for pneumonia. 4 mm solid nodule of the right lung apex on image 237. 3 mm solid nodule of the anterior segment right upper lo be on image 187. Central airways are patent. No acute process of the imaged upper abdomen. Mild generalized body wall edema. No acute fracture. De generative changes of the shoulders and spine. IMPRESSION: 1. No pulmonary emboli. 2. Moderate emphysema with bronchial wall thickening suggestive of bronchitis 3. Small pleural effusions. 4. There are two low suspicion solid nodules of the right upper lobe measuring up to 4 mm. Please refer to below summary of Fleischner criteria recommendations for follow-up of incidental CT n odules (Lupe Parks, Guidelines for management of small pulmonary nodules detected on CT scans: A sta tement from the Fleischner Society, Radiology 237: [id number].) SOLID NODULES Multiple nodules size: <6 mm * Low risk patients: no routine follow-up * high risk patients: optional CT at 12 months Note: newly detected indeterminate nodule in persons 35 years of age or older. * Low risk patients: minimal or absent history of smoking and/or other known risk factors * high risk patients: history of smoking or of other known risk factors (e.g. first degree relative with lung cancer, or exposure to asbestos, radon, uranium) * if a nodule up to 8 mm is partly solid or is ground glass further follow-up is required after 24 m [address] to exclude possible slow growing adenocarcinoma (HALIE) ACT 112: Negative or not required by law. The above report was generated using voice recognition software. It may contain grammatical, syntax o r spelling errors. Electronically signed by: Ye Kwan M.D. 05/19/2021 7:07 AM
--- NOTE | 2021-05-19 07:21 | Hospitalist Progress Note ---
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 She is being managed for the following: Acute hypoxic respiratory failure - not on home O2 Likely 2/2 asthma vs. COPD exacerbation (no official diagnosis) Lifelong tobacco user (quit 2 months ago) Can be component of both In ER patient afebrile, initial P 100, BP 130/91, 65% on room air placed on nonrebreather at 15 L with sats of 100% then transition to oxygen mask 6 L with sats remaining at 100% and was given an hour-long neb treatment. Posttreatment is 91% on 4 L oxygen mask. No leukocytosis, negative troponin, negative COVID-19 PCR. Chest x-ray: No infiltrate, no pneumothorax Likely COPD or asthma exacerbation in patient with tobacco use (quit 2 month ago, smoked since teenage) and undiagnosed lung disease Patient reporting improvement in her breathing, currently on 3 L nasal cannula oxygen. Required BiPAP earlier in the admission. Continued with Solu-Medrol 3 times daily, [id number]-xhysm nebulizer, Mucomyst Patient became more tachycardic, and breathing is improved. Nebulizer only as needed and change to levalbuterol Change Solu-Medrol to p.o. prednisone Continue telemetry, supplemental oxygentitrate as appropriate Continue Zithromax Patient will need p.o. prednisone upon discharge. Patient will need outpatient pulmonary evaluation and pulmonary function test. Follow labs and clinically daily. Anxiety and depression: History anxiety, depression, bipolar disorder No current medications. Has not had follow-up for years History of pseudoseizure: Previously on medications. Has not had follow-up for years Monitor Tobacco use: History 1 pack/day smoker x40 years. Past month has reportedly stopped smoking Encourage patient to continue to avoid tobacco DVT Prophylaxis -Lovenox SQ Full Code as per discussion with pt Does not have PCP for routine care. Patient will have to establish PCP upon discharge, pulmonology and pulmonary function test as an outpatient. Expect discharge on p.o. prednisone and recommendation to follow-up outpatient pulmonology Admission and Anticipated Discharge Date Admission Date: May 14, 2021 Subjective Patient seen in follow-up of acute hypoxic respiratory failure Patient sitting up in bed, still on oxygen via NC Currently she seems to be in no acute distress, she is answering questions appropriately Says she feels out of breath with any mild exertion/ ambulation Patient denies any headache/chest pain/palpitations/abd. pain Change nebs to levalbuterol, and only as as needed (d/t tachycardia and chest discomfort the other day) Obtained CT PE to rule out PE, given patient is still hypoxic and tachycardic. CT PE negative for PE. Review of Systems Review of Systems: All systems reviewed & are unremarkable except as noted in Subjective Physical Exam Physical Exam: GENERAL: Alert and oriented x3, thin F in NAD, on O2 v ia NC HEENT: NC/A T. EOMI, PERRL. Or al mucosa moist. N JOSSIE: No JVD, no n jossie masses. HEART: S1 and S2 heard. HR in 90s, regula r. No murmur, no g allop. RESPIRATORY : Normal AP diame ter. No accessory muscle use. No w heezing, no crackl es. Poor air movem ent. ABDOMEN: Sof t, bowel sounds pr esent, nontender, no distention. AMBER RO: Alert and alek ented x3. No faci al droop.Moves ex tremities. EXTREMI TIES: No LE edema noted. pt moves ex tremities spontane ously. Results & Data Results & Data ([facility]) Vital Signs (Past 12 Hours) Vital Signs Temp Pulse Pulse Resp BP BP Pulse Ox 05/19/21 03:00 36.6 C 78 18 113/75 97 05/18/21 23:39 36.7 C 83 20 107/69 97 05/18/21 23:02 82 05/18/21 19:48 36.4 C L 97 H 18 112/71 95 (1) Asthma with status asthmaticus Asthma persistence: persistent Asthma severity: severe Qualified Code(s): J45.52 - Severe persistent asthma with status asthmaticus
[2021-05-19 08:08] LABS: Hematocrit (blood only) 47.7 % (37-47); Hemoglobin 14.1 g/dL (12.0-16.0); Mean Corpuscular Hemoglobin 30.5 pg (25-34); Mean Corpuscular Hgb Conc 29.6 g/dL (32-36); Mean Platelet Volume 11.1 fL (7.4-10.4); Platelet Count 207 K/uL (130-400); RDW Coefficient of Variation 15.4 % (11.5-14.5); RDW Standard Deviation 57.9 fL (36.4-46.3); Red Blood Count 4.63 M/uL (4.2-5.4); White Blood Count 10.07 K/uL (4.8-10.8)
[2021-05-19] MEDS: ENOXAPARIN INJ 40 MG/0.4 ML SYR SQ SCH (08:18)
[2021-05-19] MEDS: predniSONE 20 MG TAB PO SCH (08:18)
[2021-05-19 08:32] LABS: BUN Creatinine Ratio 28.1 (10-20); Calcium 8.4 mg/dl (8.5-10.1); Creatinine Clr Calc Pharmacy 125.5 ml/min; Est GFR (African American) 128.1 ml/min; Est GFR (Non-African American) 110.6 ml/min; Magnesium 2.2 mg/dl (1.8-2.4); Phosphorus 3.8 mg/dl (2.5-4.9); Potassium 4.6 mmol/L (3.5-5.1)
[2021-05-19] MEDS: PANTOprazole 40 MG TAB PO SCH (10:02)
[2021-05-20] MEDS: predniSONE 20 MG TAB PO SCH (07:44)
[2021-05-20] MEDS: PANTOprazole 40 MG TAB PO SCH (07:44)
[2021-05-20] MEDS: ENOXAPARIN INJ 40 MG/0.4 ML SYR SQ SCH (07:44)
--- NOTE | 2021-05-20 15:33 | Hospitalist Progress Note ---
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 COPD exacerbation (no official diagnosis) Lifelong tobacco user (quit 2 months ago) Can be component of both In ER patient afebrile, initial P 100, BP 130/91, 65% on room air placed on nonrebreather at 15 L with sats of 100% then transition to oxygen mask 6 L with sats remaining at 100% and was given an hour-long neb treatment. Posttreatment is 91% on 4 L oxygen mask. No leukocytosis, negative troponin, negative COVID-19 PCR. Chest x-ray: No infiltrate, no pneumothorax Likely COPD or asthma exacerbation in patient with tobacco use (quit 2 month ago, smoked since teenage) and undiagnosed lung disease Patient reporting improvement in her breathing, currently on 3 L nasal cannula oxygen. Required BiPAP earlier in the admission. Continued with Solu-Medrol 3 times daily, [id number] nebulizer, Mucomyst Patient became more tachycardic, and breathing is improved. Nebulizer only as needed and change to levalbuterol (patient has not been using any as needed nebulizers) Changed Solu-Medrol to p.o. prednisone Continue telemetry, supplemental oxygentitrate as appropriate Continue Zithromax Patient will need p.o. prednisone upon discharge. Patient will need outpatient pulmonary evaluation and pulmonary function test. Follow labs and clinically daily. Anxiety and depression: History anxiety, depression, bipolar disorder No current medications. Has not had follow-up for years History of pseudoseizure: Previously on medications. Has not had follow-up for years Monitor Tobacco use: History 1 pack/day smoker x40 years. Past month has reportedly stopped smoking Encourage patient to continue to avoid tobacco DVT Prophylaxis -Lovenox SQ Full Code as per discussion with pt Does not have PCP for routine care. Patient will have to establish PCP upon discharge, pulmonology and pulmonary function test as an outpatient. Expect discharge on p.o. prednisone and recommendation to follow-up outpatient pulmonology Admission and Anticipated Discharge Date Admission Date: May 14, 2021 Subjective Patient seen in follow-up of acute hypoxic respiratory failure Patient sitting up in bed, still on oxygen via NC Reports feeling better, breathing is improved. Says that she can ambulate to b athroom now without too much exertion/shortness of breath. Says she does not ambulate much at baseline does not leave the house much either. Also says that she does leave the house without somebody accompanying her. Currently she seems to be in no acute distress, she is answering questions appropriately Patient denies any headache/chest pain/palpitations/abd. pain Patient has stopped using any as needed nebulizing treatments Obtained CT PE to rule out PE, given patient is still hypoxic and tachycardic. CT PE negative for PE. Review of Systems Review of Systems: All systems reviewed & are unremarkable except as noted in Subjective Physical Exam Physical Exam: GENERAL: Alert and oriented x3, thin F in NAD, on O2 v ia NC HEENT: NC/A T. EOMI, PERRL. Or al mucosa moist. N JOSSIE: No JVD, no n jossie masses. HEART: S1 and S2 heard. HR in 90s, regula r. No murmur, no g allop. RESPIRATORY : Normal AP diame ter. No accessory muscle use. No w heezing, no crackl es. Poor air movem ent. ABDOMEN: Sof t, bowel sounds pr esent, nontender, no distention. AMBER RO: Alert and alek ented x3. No faci al droop.Moves ex tremities. EXTREMI TIES: No LE edema noted. pt moves ex tremities spontane ously. Results & Data Results & Data ([facility]) Vital Signs (Past 12 Hours) Vital Signs Temp Pulse Pulse Resp BP BP Pulse Ox 05/20/21 14:47 97 H 05/20/21 11:57 37.0 C 102 H 20 105/71 91 05/20/21 07:54 37.1 C 93 H 18 111/65 95 05/20/21 05:07 36.9 C 85 16 112/73 97 Laboratory Results 05/20/21 Range/Units 16:06 Sodium 141 (136-145) mmol/L Potassium 4.8 (3.5-5.1) mmol/L Chloride 100 (98-107) mmol/L Carbon Dioxide 38 H (21-32) mmol/L Anion Gap 3.0 (3-11) BUN 13 (7-18) mg/dl Creatinine 0.67 (0.6-1.2) mg/dl Est Cr Clr Drug Dosing 95.5 ml/min Est GFR ( Amer) 117.1 ml/min Est GFR (Non-Af Amer) 101.1 ml/min BUN/Creatinine Ratio 18.7 (10-20) Glucose 106 H (70-99) mg/dl Calcium 8.3 L (8.5-10.1) mg/dl Phosphorus 3.4 (2.5-4.9) mg/dl Magnesium 2.3 (1.8-2.4) mg/dl Medications Administered Current Inpatient Medications Acetaminophen (Acetaminophen 325 Mg Tab) 650 mg PO Q4H PRN PRN Reason: Pain or Fever Stop: 06/13/21 14:03 Enoxaparin Sodium (Enoxaparin Inj 40 Mg/0.4 Ml Syr) 40 mg SQ DAILY [facility] Stop: 06/13/21 14:59 Last Admin: 05/20/21 07:44 Dose: 40 mg Documented by: Levalbuterol HCl (Levalbuterol 1.25mg/0.5ml Neb) 1.25 mg NEB Q4R PRN PRN Reason: shortness of breath, wheezing Stop: 06/16/21 13:02 Menthol (Cough Drop (Sugar Free) Fatoumata 24 Fatoumata/1 Box) 1 fatoumata BUCCAL Q1H PRN PRN Reason: Sore Throat Stop: 06/15/21 20:34 Ondansetron HCl (Ondansetron Inj 2 Mg/Ml 2 Ml Vial) 4 mg IV Q6H PRN PRN Reason: Nausea Stop: 06/13/21 14:03 Pantoprazole Sodium (Pantoprazole 40 Mg Tab) 40 mg PO QAM [facility] Stop: 06/16/21 13:14 Last Admin: 05/20/21 07:44 Dose: 40 mg Documented by: Polyethylene Glycol (Polyethylene (Miralax) 17 Gm Pack) 17 gm PO DAILY PRN PRN Reason: Constipation Stop: 06/13/21 14:03 Prednisone (Prednisone 20 Mg Tab) 40 mg PO QAM [facility] Stop: 06/17/21 08:59 Last Admin: 05/20/21 07:44 Dose: 40 mg Documented by: (1) Asthma with status asthmaticus Asthma persistence: persistent Asthma severity: severe Qualified Code(s): J45.52 - Severe persistent asthma with status asthmaticus
[2021-05-20 16:32] LABS: BUN Creatinine Ratio 18.7 (10-20); Calcium 8.3 mg/dl (8.5-10.1); Creatinine Clr Calc Pharmacy 95.5 ml/min; Est GFR (African American) 117.1 ml/min; Est GFR (Non-African American) 101.1 ml/min; Magnesium 2.3 mg/dl (1.8-2.4); Phosphorus 3.4 mg/dl (2.5-4.9); Potassium 4.8 mmol/L (3.5-5.1)
[2021-05-21] MEDS: ENOXAPARIN INJ 40 MG/0.4 ML SYR SQ SCH (07:40)
[2021-05-21] MEDS: PANTOprazole 40 MG TAB PO SCH (07:41)
[2021-05-21] MEDS: predniSONE 20 MG TAB PO SCH (07:41)
[2021-05-21 07:44] LABS: BUN Creatinine Ratio 24.4 (10-20); Calcium 8.9 mg/dl (8.5-10.1); Creatinine Clr Calc Pharmacy 139.1 ml/min; Est GFR (African American) 132.6 ml/min; Est GFR (Non-African American) 114.4 ml/min; Magnesium 2.4 mg/dl (1.8-2.4); Phosphorus 3.7 mg/dl (2.5-4.9)
--- NOTE | 2021-05-21 18:45 | Hospitalist Progress Note ---
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 COPD exacerbation (no official diagnosis) Lifelong tobacco user (quit 2 months ago) Can be component of both In ER patient afebrile, initial P 100, BP 130/91, 65% on room air placed on nonrebreather at 15 L with sats of 100% then transition to oxygen mask 6 L with sats remaining at 100% and was given an hour-long neb treatment. Posttreatment is 91% on 4 L oxygen mask. No leukocytosis, negative troponin, negative COVID-19 PCR. Chest x-ray: No infiltrate, no pneumothorax Likely COPD or asthma exacerbation in patient with tobacco use (quit 2 month ago, smoked since teenage) and undiagnosed lung disease Patient reporting improvement in her breathing, currently on 3 L nasal cannula oxygen. Required BiPAP earlier in the admission. Continued with Solu-Medrol 3 times daily, nrfmou-ger-pjnsk nebulizer, Mucomyst Patient became more tachycardic, and breathing is improved. Nebulizer only as needed and change to levalbuterol (patient has not been using any as needed nebulizers) Changed Solu-Medrol to p.o. prednisone Continue telemetry, supplemental oxygen titrate as appropriate -stable on oxygen, will obtain 2 step study in the morning Finished treatment w/ Zithromax Patient will need p.o. prednisone upon discharge. Patient will need outpatient pulmonary evaluation and pulmonary function test. Follow labs and clinically daily. Anxiety and depression: History anxiety, depression, bipolar disorder No current medications. Has not had follow-up for years History of pseudoseizure: Previously on medications. Has not had follow-up for years Monitor Tobacco use: History 1 pack/day smoker x40 years. Past month has reportedly stopped smoking Encourage patient to continue to avoid tobacco DVT Prophylaxis -Lovenox SQ Full Code as per discussion with pt Does not have PCP for routine care. Patient will have to establish PCP upon discharge, pulmonology and pulmonary function test as an outpatient. Expect discharge on p.o. prednisone and recommendation to follow-up outpatient pulmonology Admission and Anticipated Discharge Date Admission Date: May 14, 2021 Subjective Patient seen in follow-up of acute hypoxic respiratory failure Patient sitting up in bed, still on oxygen via NC Reports feeling better, breathing is improved. Says that she can ambulate to bathroom now without too much exertion/shortness of breath. Says she does not ambulate much at baseline does not leave the house much either. Also says that she does not leave the house without somebody accompanying her. Currently she seems to be in no acute distress, she is answering questions appro priately Patient denies any headache/chest pain/palpitations/abd. pain Patient has stopped using any as needed nebulizing treatments Says at home she is also on allergy medication (she is not sure which one), will start Zyrtec Obtained CT PE to rule out PE, given patient is still hypoxic and tachycardic. CT PE negative for PE. Patient is still on oxygen, will obtain 2 step study in the morning Patient says she would like to be discharged tomorrow, says that she feels better and that at home they should be able to manage She knows she needs to follow-up with PCP, and pulmonary, will establish care and will arrange appointments for her Review of Systems Review of Systems: All systems reviewed & are unremarkable except as noted in Subjective Physical Exam Physical Exam: GENERAL: Alert and oriented x3, thin F in NAD, on O2 v ia NC HEENT: NC/A T. EOMI, PERRL. Or al mucosa moist. N JOSSIE: No JVD, no n jossie masses. HEART: S1 and S2 heard. HR in 90s, regula r. No murmur, no g allop. RESPIRATORY : Normal AP diame ter. No accessory muscle use. No w heezing, no crackl es. Poor air movem ent. ABDOMEN: Sof t, bowel sounds pr esent, nontender, no distention. AMBER RO: Alert and alek ented x3. No faci al droop.Moves ex tremities. EXTREMI TIES: No LE edema noted. pt moves ex tremities spontane ously. Results & Data Results & Data ([facility]) Vital Signs (Past 12 Hours) Vital Signs Temp Pulse Resp BP Pulse Ox 05/21/21 16:00 36.7 C 80 19 103/67 94 05/21/21 12:00 36.6 C 91 H 19 98/64 L 93 05/21/21 08:14 36.4 C L 77 19 95/61 L 94 Laboratory Results 05/21/21 Range/Units 06:51 Sodium 140 (136-145) mmol/L Potassium 4.0 D (3.5-5.1) mmol/L Chloride 98 (98-107) mmol/L Carbon Dioxide 42 H* (21-32) mmol/L Anion Gap 0 L (3-11) BUN 11 (7-18) mg/dl Creatinine 0.46 L (0.6-1.2) mg/dl Est Cr Clr Drug Dosing 139.1 ml/min Est GFR ( Amer) 132.6 ml/min Est GFR (Non-Af Amer) 114.4 ml/min BUN/Creatinine Ratio 24.4 H (10-20) Glucose 77 (70-99) mg/dl Calcium 8.9 (8.5-10.1) mg/dl Phosphorus 3.7 (2.5-4.9) mg/dl Magnesium 2.4 (1.8-2.4) mg/dl Medications Administered Current Inpatient Medications Acetaminophen (Acetaminophen 325 Mg Tab) 650 mg PO Q4H PRN PRN Reason: Pain or Fever Stop: 06/13/21 14:03 Enoxaparin Sodium (Enoxaparin Inj 40 Mg/0.4 Ml Syr) 40 mg SQ DAILY [facility] Stop: 06/13/21 14:59 Last Admin: 05/21/21 07:40 Dose: 40 mg Documented by: Levalbuterol HCl (Levalbuterol 1.25mg/0.5ml Neb) 1.25 mg NEB Q4R PRN PRN Reason: shortness of breath, wheezing Stop: 06/16/21 13:02 Menthol (Cough Drop (Sugar Free) Fatoumata 24 Fatoumata/1 Box) 1 fatoumata BUCCAL Q1H PRN PRN Reason: Sore Throat Stop: 06/15/21 20:34 Ondansetron HCl (Ondansetron Inj 2 Mg/Ml 2 Ml Vial) 4 mg IV Q6H PRN PRN Reason: Nausea Stop: 06/13/21 14:03 Pantoprazole Sodium (Pantoprazole 40 Mg Tab) 40 mg PO [facility] Stop: 06/16/21 13:14 Last Admin: 05/21/21 07:41 Dose: 40 mg Documented by: Polyethylene Glycol (Polyethylene (Miralax) 17 Gm Pack) 17 gm PO DAILY PRN PRN Reason: Constipation Stop: 06/13/21 14:03 Prednisone (Prednisone 20 Mg Tab) 40 mg PO [facility] Stop: 06/17/21 08:59 Last Admin: 05/21/21 07:41 Dose: 40 mg Documented by: (1) Asthma with status asthmaticus Asthma persistence: persistent Asthma severity: severe Qualified Code(s): J45.52 - Severe persistent asthma with status asthmaticus
[2021-05-21] MEDS ORDERED: CETIRIZINE HCL 10 MG TABLET PO ONE (20:15)
[2021-05-22 06:36] LABS: BUN Creatinine Ratio 28.2 (10-20); Calcium 8.2 mg/dl (8.5-10.1); Creatinine Clr Calc Pharmacy 152.4 ml/min; Est GFR (African American) 136.6 ml/min; Est GFR (Non-African American) 117.8 ml/min; Magnesium 2.2 mg/dl (1.8-2.4); Potassium 4.1 mmol/L (3.5-5.1)
[2021-05-22] MEDS: ENOXAPARIN INJ 40 MG/0.4 ML SYR SQ SCH (07:50)
[2021-05-22] MEDS: PANTOprazole 40 MG TAB PO SCH (07:51)
[2021-05-22] MEDS: predniSONE 20 MG TAB PO SCH (07:51)
[2021-05-22] MEDS ORDERED: CETIRIZINE HCL 10 MG TABLET PO SCH (09:00)
--- NOTE | 2021-05-22 10:17 | Hospitalist Progress Note ---
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 asthma exacerbation(no official diagnosis) Lifelong tobacco user (quit 2 months ago) Can be component of both In ER patient afebrile, initial P 100, BP 130/91, 65% on room air placed on nonrebreather at 15 L with sats of 100% then transition to oxygen mask 6 L with sats remaining at 100% and was given an hour-long neb treatment. Posttreatment is 91% on 4 L oxygen mask. No leukocytosis, negative troponin, negative COVID-19 PCR. Chest x-ray: No infiltrate, no pneumothorax Likely COPD or asthma exacerbation in patient with tobacco use (quit 2 month ago, smoked since teenage) and undiagnosed lung disease Patient reporting improvement in her breathing, currently on 3 L nasal cannula oxygen. Required BiPAP earlier in the admission. Continued with Solu-Medrol 3 times daily, kbmdoa-bhw-[id number] nebulizer, Mucomyst Patient became more tachycardic, and breathing is improved. Nebulizer only as needed and change to levalbuterol (patient has not been using any as needed nebulizers) Changed Solu-Medrol to p.o. prednisone Finished treatment w/ Zithromax Continue telemetry, supplemental oxygen Obtained CT PE as patient had prolonged hospital stay, and still on supplemental oxygen, occasionally tachycardic -Negative for PE -Shows moderate emphysema Obtained 2 step study (05/22) -patient needs 2 L of continuous oxygen on discharge Plan to DC on p.o. prednisone taper. Patient will need outpatient pulmonary evaluation and pulmonary function test. Anxiety and depression: History anxiety, depression, bipolar disorder No current medications. Has not had follow-up for years History of pseudoseizure: Previously on medications. Has not had follow-up for years Monitor Tobacco use: History 1 pack/day smoker x40 years. Past month has reportedly stopped smoking Encourage patient to continue to avoid tobacco DVT Prophylaxis -Lovenox SQ Full Code as per discussion with pt Does not have PCP for routine care. Patient will have to establish PCP upon discharge, pulmonology and pulmonary function test as an outpatient. Expect discharge on p.o. prednisone and recommendation to follow-up outpatient pulmonology Admission and Anticipated Discharge Date Admission Date: May 14, 2021 Subjective Patient seen in follow-up of acute hypoxic respiratory failure Patient sitting up in bed, still on oxygen via NC Had 2 step study done this morning, patient requires 2 L continuously Reports feeling better, breathing is improved. Says that she can ambulate to bathroom now without too much exertion/shortness of breath. Eager for discharge today. Patient denies any chest pain/palpitations/abd. pain Arrange follow-up with PCP, and pulmonary Review of Systems Review of Systems: All systems reviewed & are unremarkable except as noted in Subjective Physical Exam 2 Physical Exam: GENERAL: Alert and oriented x3, thin F in NAD, on 2l O 2 via NC HEENT: N C/AT. EOMI, PERRL. Oral mucosa moist . NECK: No JVD, n o neck masses. HEA RT: S1 and S2 hea rd.HR in 90s, reg ular. No murmur, n o gallop. RESPIRAT ORY: Normal AP di ameter. No access ory muscle use. 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 Poor air mo vement. ABDOMEN: Soft, bowel sounds present, nontende r, no distention. NEURO: Alert and oriented x3. No f acial droop.Moves extremities. EXTR EMITIES: No LE jada ma noted. pt moves extremities spont aneously. Results & Data Results & Data ([facility]) Vital Signs (Past 12 Hours) Vital Signs Temp Pulse Pulse Pulse Pulse Pulse Pulse 05/22/21 08:30 93 H 115 H 110 H 102 H 05/22/21 08:00 37.0 C 68 88 05/22/21 04:14 37.1 C 73 05/22/21 00:00 76 05/21/21 23:24 36.8 C 79 Resp Resp Resp Resp Resp BP BP 05/22/21 08:30 18 20 20 18 05/22/21 08:00 16 134/63 05/22/21 04:14 16 115/69 05/22/21 00:00 05/21/21 23:24 18 108/70 Pulse Ox Pulse Ox Pulse Ox Pulse Ox Pulse Ox 05/22/21 08:30 90 92 92 86 L 05/22/21 08:00 97 05/22/21 04:14 95 05/22/21 00:00 05/21/21 23:24 96 Laboratory Results 05/22/21 Range/Units 05:34 Sodium 142 (136-145) mmol/L Potassium 4.1 (3.5-5.1) mmol/L Chloride 102 (98-107) mmol/L Carbon Dioxide 35 H (21-32) mmol/L Anion Gap 5.0 (3-11) BUN 12 (7-18) mg/dl Creatinine 0.42 L (0.6-1.2) mg/dl Est Cr Clr Drug Dosing 152.4 ml/min Est GFR ( Amer) 136.6 ml/min Est GFR (Non-Af Amer) 117.8 ml/min BUN/Creatinine Ratio 28.2 H (10-20) Glucose 77 (70-99) mg/dl Calcium 8.2 L (8.5-10.1) mg/dl Phosphorus 3.0 (2.5-4.9) mg/dl Magnesium 2.2 (1.8-2.4) mg/dl Medications Administered Current Inpatient Medications Acetaminophen (Acetaminophen 325 Mg Tab) 650 mg PO Q4H PRN PRN Reason: Pain or Fever Stop: 06/13/21 14:03 Albuterol (Albuterol Hfa 8 Gm Inhaler) 2 puffs INH Q6H PRN PRN Reason: shortness of breath Stop: 06/21/21 10:14 Cetirizine HCl (Cetirizine Hcl 10 Mg Tablet) 10 mg PO QAM [facility] Stop: 06/21/21 08:59 Last Admin: 05/22/21 07:50 Dose: 10 mg Documented by: Enoxaparin Sodium (Enoxaparin Inj 40 Mg/0.4 Ml Syr) 40 mg SQ DAILY [facility] Stop: 06/13/21 14:59 Last Admin: 05/22/21 07:50 Dose: 40 mg Documented by: Levalbuterol HCl (Levalbuterol 1.25mg/0.5ml Neb) 1.25 mg NEB Q4R PRN PRN Reason: shortness of breath, wheezing Stop: 06/16/21 13:02 Menthol (Cough Drop (Sugar Free) Faotumata 24 Fatoumata/1 Box) 1 fatoumata BUCCAL Q1H PRN PRN Reason: Sore Throat Stop: 06/15/21 20:34 Ondansetron HCl (Ondansetron Inj 2 Mg/Ml 2 Ml Vial) 4 mg IV Q6H PRN PRN Reason: Nausea Stop: 06/13/21 14:03 Pantoprazole Sodium (Pantoprazole 40 Mg Tab) 40 mg PO [facility] Stop: 06/16/21 13:14 Last Admin: 05/22/21 07:51 Dose: 40 mg Documented by: Polyethylene Glycol (Polyethylene (Miralax) 17 Gm Pack) 17 gm PO DAILY PRN PRN Reason: Constipation Stop: 06/13/21 14:03 Prednisone (Prednisone 20 Mg Tab) 40 mg PO [facility] Stop: 06/17/21 08:59 Last Admin: 05/22/21 07:51 Dose: 40 mg Documented by: (1) Asthma with status asthmaticus Asthma persistence: persistent Asthma severity: severe Qualified Code(s): J45.52 - Severe persistent asthma with status asthmaticus
[2021-05-22] MEDS ORDERED: ALBUTEROL HFA 8 GM INHALER INH PRN (10:30)
--- NOTE | 2021-05-22 13:48 | Discharge Summary ---
Date of Service May 22, 2021 Admission HPI Per Admitting Provider Patient is 51-year-old female with PMH depression, anxiety, bipolar disorder, pseudoseizures, tobacco use presented to ER with complaint of shortness of breath times several weeks. Patient reports been having shortness of breath and wheezing for several weeks however this morning woke up with severe shortness of breath. Tried using OTC Primatine Mist Inhaler. States she feels like was able to cough after using that a couple of times. Feels like she is not moving much air. In past was to be on daily inhaler and nasal spray, however did not take regularly. Has not seen PCP for 7 years. Reports a smoker 0.5-1 ppd x 40 years. In the past month has cut down and not smoking past month. Denies fever/chills, diaphoresis, N/V/D/C, REAL, dizziness, syncope, vision changes, neck pain, CP, orthopnea, palpitations, sore throat, choking, otalgia, rhinorrhea, abdominal pain, paresthesias, extremity weakness, extremity edema, rashes, urinary symptoms. Denies ill contacts. Reports stays at home mostly. Did not have COVID- 19 vaccine. Cell phone number: [phone], home phone in chart also. In ER patient afebrile, initial P 100, BP 130/91, 65% on room air placed on nonrebreather at 15 L with sats of 100% then transition to oxygen mask 6 L with sats remaining at 100% and was given an hour-long neb treatment. Posttreatment is 91% on 4 L oxygen mask. No leukocytosis, negative troponin, negative COVID- 19 PCR. Chest x-ray without infiltrate, pneumothorax. Admission Exam Per Admitting Provider General: mild distress currently with coughing with deep breathing, improves with rest. 93% on 4L oxymask, Thin female, appears older than stated age. dishevelved. Head: normocephalic, atraumatic Eyes: EOM's grossly intact, conjunctiva non-injected, anicteric ENT: normal inspection external ears, nose, mucous membranes dry Neck: supple, trachea midline Lungs: +Very diminished breath sounds throughout, +cough episode with deep breathing. Currently 93% on 4L oxymask. no wheezing/rhonchi/rales appreciated CV: tachycardia at 132, regular rhythm, no murmur, no pretibial edema Abd: normal BS, soft, non-tender Ext: no cyanosis, no calf tenderness Neuro: A&O x 3, no focal deficits noted, normal affect Skin: warm, dry Principal Diagnosis Acute hypoxic failure with hypoxia Emphysema Life-long tobacco use Possible asthma exacerbation Pulmonary nodules Discharge Exam GENERAL: Alert and oriented x3, thin F in NAD, on 2l O2 via NC HEENT: NC/AT. EOMI, PERRL.Oral mucosa moist. NECK: No JVD, no neck masses. HEART: S1 and S2 heard.HR in 90s, regular. No murmur, no gallop. RESPIRATORY: Normal AP diameter. No accessory muscle use. No wheezing, no crackles. Poor air movement. ABDOMEN:Soft, bowel sounds present, nontender, no distention. NEURO: Alert and oriented x3. No facial droop.Moves extremities. EXTREMITIES: No LE edema noted. pt moves extremities spontaneously. Discharge Data Allergies Allergy/AdvReac Type Severity Reaction Status Date / Time Penicillins Allergy Severe RASH, Verified 07/29/09 03:36 HIVES, AND CHEST TIGHTNESS Consultations 05/14/21 10:03 ED Decision to Admit Stat Ordered Studies 05/18/21 22:16 CT angio chest PE protocol Routine FINDINGS: CTA: There is adequate opacification of the pulmonary arteries to the level of the subsegmental branches without convincing evidence of acute pulmonary embolism. Mild atherosclerosis of the thoracic aorta without aneurysm or dissection. Patency of the imaged great vessels.Heart size is normal. CT CHEST: No thyroid nodule or adenopathy. Small layering pleural effusions. Moderate emphysema with bronchial wall thickening. No overt pulmonary edema or airspace consolidation typical for pneumonia. 4 mm solid nodule of the right lung apex on image 237. 3 mm solid nodule of the anterior segment right upper lobe on image 187. Central airways are patent. No acute process of the imaged upper abdomen. Mild generalized body wall edema. No acute fracture. Degenerative changes of the shoulders and spine. IMPRESSION: 1. No pulmonary emboli. 2. Moderate emphysema with bronchial wall thickening suggestive of bronchitis 3. Small pleural effusions. 4. There are two low suspicion solid nodules of the right upper lobe measuring up to 4 mm. Please refer to below summary of Fleischner criteria recommendations for follow- up of incidental CT nodules (Lupe Parks, Guidelines for management of small pulmonary nodules detected on CT scans: A statement from the Fleischner Society, Radiology 237: [phone].) SOLID NODULES Multiple nodules size: <6 mm * Low risk patients: no routine follow-up * high risk patients: optional CT at 12 months Note: newly detected indeterminate nodule in persons 35 years of age or older. * Low risk patients: minimal or absent history of smoking and/or other known risk factors * high risk patients: history of smoking or of other known risk factors (e.g. 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 She is being managed for the following: Acute hypoxic respiratory failure - not on home O2 Likely COPD exacerbation, emphysema on CT scan vs. asthma exacerbation(no offi cial diagnosis) Lifelong tobacco user (quit 2 months ago) Can be component of both In ER patient afebrile, initial P 100, BP 130/91, 65% on room air placed on nonrebreather at 15 L with sats of 100% then transition to oxygen mask 6 L with sats remaining at 100% and was given an hour-long neb treatment. Posttreatment is 91% on 4 L oxygen mask. No leukocytosis, negative troponin, negative COVID-19 PCR. Chest x-ray: No infiltrate, no pneumothorax Likely COPD or asthma exacerbation in patient with tobacco use (quit 2 month ago, smoked since teenage) and undiagnosed lung disease Patient reporting improvement in her breathing, currently on 3 L nasal cannula oxygen. Required BiPAP earlier in the admission. Continued with Solu-Medrol 3 times daily, [id number] nebulizer, Mucomyst Patient became more tachycardic, and breathing is improved. Nebulizer only as needed and change to levalbuterol (patient has not been using any as needed nebulizers) Changed Solu-Medrol to p.o. prednisone Finished treatment w/ Zithromax Continue telemetry, supplemental oxygen Obtained CT PE as patient had prolonged hospital stay, and still on supplemental oxygen, occasionally tachycardic -Negative for PE -Shows moderate emphysema - small pulmonary nodules Pulm. nodules - will need outpt follow up. Obtained 2 step study (05/22) -patient needs 2 L of continuous oxygen on discharge Plan to DC on p.o. prednisone taper. Patient will need outpatient pulmonary evaluation and pulmonary function test. Anxiety and depression: History anxiety, depression, bipolar disorder No current medications. Has not had follow-up for years History of pseudoseizure: Previously on medications. Has not had follow-up for years Monitor Tobacco use: History 1 pack/day smoker x40 years. Past month has reportedly stopped smoking Encourage patient to continue to avoid tobacco DVT Prophylaxis -Lovenox SQ Full Code as per discussion with pt Does not have PCP for routine care. Patient will have to establish PCP upon discharge, pulmonology and pulmonary function test as an outpatient. Expect discharge on p.o. prednisone and recommendation to follow-up outpatient pulmonology Total Time Total Time Spent Total Time Spent (In Minutes): 40 Discharge Plan Discharge Items Patient Disposition: Home - Self-Care Reason For Visit: HYPOXIA Discharge Diagnosis: Acute hypoxic failure with hypoxia Emphysema Life-long tobacco use Possible asthma exacerbation Activity: Per Instructions section Non-emergency contact: Primary Care Provider and Outpatient Coding Specialist Call non-emergency contact if: you have any medication questions and your symptoms worsen Follow-up/Referrals: Michelle Steel DO [Outside Practitioners] - (Date & Time 05/29/2021 1:20 PM Provider Michelle Steel DO Department [facility] ) Diet: Regular Addtl Attending Provider Instructions: Follow-up with primary care doctor, the appointment was scheduled for you for May 29. He also need to follow-up with pulmonology. Use oxygen continuously, 2 L until you are seen by other healthcare providers and they determine otherwise. Finish prednisone taper, take 3 tablets for next 2 days, then 2 tablets for next 4 days and then lastly 1 tablet for 4 days. Use albuterol inhaler as needed for shortness of breath or wheezing. Take pantoprazole, to prevent any stomach upset from taking prednisone. Also recommend to take Zyrtec or other allergy medication. You will need to be further evaluated by pulmonary (and also possibly allergy) medicine. Pending Studies at Discharge: No Stand-Alone Forms: My [facility], Smoking Cessation Medications and DC Order Prescriptions: New albuterol sulfate [Ventolin HFA] 90 mcg/actuation Hfa Aerosol Inhaler 2 puff inhalation Q6R PRN (Reason: shortness of breath or wheezing) Qty: 8.5 RF: 0 cetirizine 10 mg Tablet 10 mg PO QAM Qty: 10 RF: 0 pantoprazole 40 mg Tablet,Delayed Release (Dr/Ec) 40 mg PO QAM Qty: 10 RF: 0 prednisone 10 mg tablet 10 mg PO DAILY Qty: 18 RF: 0 Discharge Orders: Discharge Order (Routine); Ordered 05/22/21 Ordered By: Zack Tena Admission Data Admit Date/Time: 05/14/21 10:26 Attending Provider: Zack Tena Admit Provider: Xiang Iverson Primary Care Provider: PCP,NO Other Providers: Xiang Iverson ; Jens Gant
== END 2021-05-22 16:10 | disposition home or self-care (01) | DRG 189 ==
LOC: ED 07:10 → EDINP 10:26 → SUATTDRO 10:26 → 2S 13:30